=== PATIENT | male | born 1975 | race Hispanic/Latino ===

== ENCOUNTER 2019-04-16 08:59 | Outpatient (CLI) | payer BC ==
--- NOTE | 2019-04-16 09:27 | RAD ---
Exam: Chest 2 views HISTORY:Pain Comparison: None FINDINGS: Lungs: No masses or consolidation. Cardiac silhouette: Normal size Pulmonary vessels: Normal Pleural Spaces: Clear Pneumothorax: None Osseous abnormalities: None of acuity. IMPRESSION: No focal consolidation.
== END 2019-04-16 09:00 | disposition home or self-care (01) ==
LOC: BICRAD 08:59
PROVIDERS: ATTEND Specialist
DX: R07.81 Pleurodynia (principal)
CPT/HCPCS: 71046

== ENCOUNTER 2019-09-16 09:42 | Outpatient (CLI) | payer BC ==
--- NOTE | 2019-09-16 10:12 | RAD ---
Exam: 2 views lumbar spine HISTORY: Low back pain, x10 years FINDINGS: 5 lumbar type vertebra. Vertebral body height is maintained. No fracture. No significant lo ss of disc space height with the exception of L5 and S1 where there is mild to moderate degenerative change. No spondylolisthesis or spondylolysis. IMPRESSION: Mild to moderate degenerative disc disease at L5-S1. MRI may be beneficial
== END 2019-09-16 09:43 | disposition home or self-care (01) ==
LOC: BICRAD 09:42
PROVIDERS: ATTEND Specialist
DX: M54.5 Low back pain (principal); M51.37 Other intervertebral disc degeneration, lumbosacral region
CPT/HCPCS: 72100